=== PATIENT | female | born 1970 | race Two or more races ===

== ENCOUNTER 2024-11-30 13:42 | Outpatient (AMB) | payer BC, SELFPAY ==
[2024-11-30 14:00] VITALS: BP 127/84; PULSE 70; RESP 18; TEMP 36.4; O2SAT 98; BMI 31.9
--- NOTE | 2024-11-30 14:00 | GSCOFFNT_ITS ---
Vital Signs - [facility] 11/30/24 14:00 Height 1.63 m Height Method Stated Weight 84.482 kg Weight Measurement Method Standing Scale BMI 31.9 BP 127/84 Blood Pressure Source Automatic Cuff Blood Pressure Location Left Upper Arm Position Sitting Respiration 18 Pulse 70 Pulse Source Monitor Temp 97.5 F Temp Source Temporal Artery Scan Pulse Oximetry (%) 98 Oxygen Delivery Method Room Air Med/Allergies Allergies & Medications Allergies No Known Allergies Allergy (Verified 11/30/24 14:01) Medication Reconciliation eszopiclone 1 mg tablet (Lunesta) 1 mg PO QHS 11/30/24 [History Confirmed 11/30/24] prednisone 1 mg tablet 1 mg PO QDAY 11/30/24 [History Confirmed 11/30/24] MA Intake Visit Data Collection New Patient or Established: Established Patient (seen at [facility] within 3 years) Seen by Clinical Staff ONLY (RN/MA): No Reason for Visit:: REFERRAL RECTAL PROLAPSE Pain Present Currently: Yes Pain Location: Unable to identify Pain scale:: 4 PCP or OBGYN visit in last 3 months: Yes Smoking Status Smoking Status: Never smoker Immunization / Flu Flu Vaccine in the Last 12 Months: Yes Flu Vaccine Exclusion Criteria: Already Received Past Medical History Social History SMOKING STATUS: Smoking status: Never smoker HPI HPI Narrative 54F referred for rectal prolapse. Pt states she has noticed it for a long time but it is especially bothersome as of late, causing her constant discomfort. Pt drinks plenty of water daily and takes a probiotic as well as what sounds like a stool softener, and sometimes takes fiber though not reqularly. She sometimes has to strain and sometimes has difficulty controlling BMs. Pt also notices bleeding. Her rectal prolapse is reducible but it feels harder to reduce as of late and pt states the prolapse is bigger than it once was. She underwent colonoscopy by Dr Castillo 11/05/2024 which was normal aside from the prolapse PMH: Anemia, mild asthma, sleep apnea PShx: Gastric bypass, hysterectomy, left finger tendon repair Meds: Citalopram, pantoprazole, tramadol PRN, lunesta Allergies: NKDA Social hx: Nonsmoker, gave vaginally x3 Family hx: no known CRC in family ROS Review of Systems Systems Reviewed: All systems reviewed, normal except as documented Objective/Exam General General Appearance: alert, cooperative and well groomed Resp Respiratory exam: Absent respiratory distress Abdominal Abdominal exam: Present soft and incision (well-healed laparoscopic incisions); Absent distention or tenderness Rectal Rectal exam: Present decreased rectal tone and other (at rest prolapse is reduced but with valsalva pt is able to recreate the prolapse, it is approx 3cm full thickness. It is reducible but does cause some tenderness) Assessment & Plan Diagnosis / Problem List (1) Rectal prolapse: Status: Acute Assessment & Plan: 54F with symptomatic rectal prolapse. I explained that the most durable repairs for rectal prolapse are done via an abdominal approach, vs a perineal approach which is reserved for elderly/less surgically fit patients. As she is young and otherwise healthy, and has a history of laparoscopic surgeries I offered to refer her to a colorectal surgeon who can perform robotic assisted rectopexy, explaining that he may also recommend sigmoidectomy if she has a redundant colon. All questions were answered and pt is agreeable with this plan Orders: Referrals General surgery K62.3 - Rectal prolapse Office Procedures GNS Level of Care Nursing/Assessment Patient Status: Initial/New Patient Nursing Assessment/Reassesment: Medication Reconciliation, Update PMH in EMR and Vital Signs Coordination of Care: Complex Care and Chronic Disease 1-5, Consent,records obtained, informed consent, Education Simp Pt/Fam, Results/Orders obtained and Staff clarify orders New Patient Charge New Patient Point Assignment: [id number] New Patient Point Charge: INTERNATIONAL SALES REPRESENTATIVE Level 3 ([id number]) Patient Portal Questionaires Social History Tobacco History Smoking Status: Never smoker Review of Systems Report any current symptoms Only answer those that you have currently: Past Medical History Past Medical History Have you ever been diagnosed with any of the following:
== END 2024-11-30 14:26 | disposition home or self-care (01) ==
LOC: HODSRG 13:42
PROVIDERS: PCP Internal Medicine Gastroenterology; Referring Provider Internal Medicine Gastroenterology; Supervising Provider Surgery; Visit Provider Surgery
DX: K62.3 Rectal prolapse (principal)
CPT/HCPCS: 99203; G0463